=== PATIENT | male | born 1985 | race Caucasian/White ===

== ENCOUNTER → 2017-08-26 | Day surgery (SDC) | payer OTHER ==
[2017-06-07 09:28] VITALS: BMI 28.0
[2017-08-19 08:47] VITALS: Ht 160 cm; Wt 72.7 kg
[~2017-08-26] VITALS: Ht 160 cm; Wt 72.7 kg
[~2017-08-26] MED LIST: LIDOCAINE HCL 2% 2 ML VIAL (20MG/ML) ONE; PROPOFOL IV EMULSION 10 MG/ML 20 ML VIAL IV ONE
--- NOTE | 2017-08-26 11:25 | Endo History and Physical ---
History & Physical Date of Service: Aug 26, 2017. Chief Complaint: change in stool caliber Referring Physician: Dr. Per Mack History of Present Illness 31 yo CM who presents for Flexible sigmoidoscopy secondary to change in bowel habits. Past Surgical History Hx Cardiac Surgery: No Hx Internal Defibrillator: No Hx Pacemaker: No Hx Abdominal Surgery: No Hx of Implantable Prosthesis: No Hx Post-Op Nausea and Vomiting: No Hx Cancer Surgery: No Hx Thoracic Surgery: No Hx Orthopedic: Yes (LEFT ARM CLOSED REDUCTION (NO OPENING BUT HAD ANESTHESIA)) Hx Urinary Tract Surgery: No Family History None Social History Smoking Status: Current Every Day Smoker Hx Substance Use: No Hx Alcohol Use: No Allergies Coded Allergies: No Known Allergies (Verified , 08/26/17) Current Medications Reported Home Medications Medications Dose Route/Sig Max Daily Dose Days Date Category No Active Prescriptions or Reported Medications Rx Vital Signs Weight (Kilograms): 72.73 Height (Feet): 5 Height (Inches): 3 Date Time Temp Pulse Resp B/P (MAP) Pulse Ox O2 Delivery O2 Flow Rate FiO2 08/26/17 11:10 36.7 98 16 143/95 (111) 98 Room Air Physical Exam General Appearance: WD/WN, no apparent distress Respiratory/Chest: Auscultation: breath sounds normal Cardiovascular: Heart Auscultation: RRR Abdomen: Bowel Sounds: normal Inspection & Palpation: soft, non-distended, no tenderness, guarding & rebound Assessment and Plan Assessment: 31 yo CM who presents for Flexible sigmoidoscopy secondary to change in bowel habits. Plan: Proceed with Flexible sigmoidoscopy.
--- NOTE | 2017-08-26 12:07 | GI REPORT ---
Procedure Date: 08/26/2017 11:30 AM Procedure: Colonoscopy Indications: Change in stool caliber Medicines: Monitored Anesthesia Care Complications: No immediate complications. Estimated Blood Loss: Estimated blood loss: none. Procedure: Pre-Anesthesia Assessment: - Prior to the procedure, a History and Physical was performed, and patient medications and allergies were reviewed. The patient's tolerance of previous anesthesia was also reviewed. The risks and benefits of the procedure and the sedation options and risks were discussed with the patient. All questions were answered, and informed consent was obtained. Prior Anticoagulants: The patient has taken no previous anticoagulant or antiplatelet agents. ASA Grade Assessment: II - A patient with mild systemic disease. After reviewing the risks and benefits, the patient was deemed in satisfactory condition to undergo the procedure. After I obtained informed consent, the scope was passed under direct vision. Throughout the procedure, the patient's blood pressure, pulse, and oxygen saturations were monitored continuously. The scope was introduced through the anus and advanced to the cecum, identified by appendiceal orifice and ileocecal valve. The colonoscopy was performed without difficulty. The patient tolerated the procedure well. The quality of the bowel preparation was adequate to identify polyps. The ileocecal valve, appendiceal orifice, and rectum were photographed. Findings: The perianal and digital rectal examinations were normal. Non-bleeding internal hemorrhoids were found during retroflexion. The hemorrhoids were small. Impression: - Non-bleeding internal hemorrhoids. - No specimens collected. Recommendation: - Resume previous diet. - Continue present medications. - Repeat colonoscopy at age 50 for surveillance. - Return to primary care physician as previously scheduled. Rufus Vazquez, 08/26/2017 12:07:20 PM This report has been signed electronically. Note Initiated On: 08/26/2017 11:30 AM I attest to the content of the Intraoperative Record and orders documented therein, exceptions below
--- NOTE | 2017-08-26 12:08 | Discharge Instructions ---
Endoscopy Patient Instructions Date / Procedure(s) Performed Aug 26, 2017. Flex Sig Allergy Information Coded Allergies: No Known Allergies (Verified , 08/26/17) Discharge Date / Findings Aug 26, 2017. Internal hemorrhoids Medication Instructions OK to resume all medications today as prescribed Reported Home Medications Medications Dose Route/Sig Max Daily Dose Days Date Category No Active Prescriptions or Reported Medications Rx Provider Instructions Activity Restrictions - No exercising or heavy lifting for 24 hours. - Do not drink alcohol the day of the procedure. - Do not drive a car or operate machinery until the day after the procedure. - Do not make any important decisions or sign important papers in 24 hours after the procedure. Following Day: - Return to full activity which may include returning to work/school. Diet Start your diet with liquids and light foods (jello, soup, juice, toast). Then eat your usual diet if not nauseated. Treatment For Common After Affects For mild abdominal pain, bloating, or excessive gas: - Rest - Eat lightly - Lie on right side Follow-Up Information Follow-up with Dr. Per Mack as scheduled Anesthesia Information What You Should Know You have had a procedure that required some medicine to reduce anxiety and discomfort. This treatment is called moderate sedation. After receiving the treatment, you may be sleepy, but you will be able to breathe on your own. The effects of the treatment may last for several hours. Follow these instructions along with Activity/Diet recommendations noted above: * Do NOT do anything where dizziness or clumsiness would be dangerous. * Rest quietly at home today, then you can be up and about tomorrow. * Have a responsible person stay with you the rest of today. * You may have had an I.V. today. If so, you may take the dressing off later today. Recommendations Call your doctor if: * Trouble breathing * Continuous vomiting for more than 24 hours * Temperature above 101 degrees * Severe abdominal pain or bloating * Pain not relieved by pain medicine ordered * There is increased drainage or redness from any incision * A large amount of rectal bleeding greater than 2-3 tablespoons. (If you had a polyp/s removed or have hemorrhoids, a small amount of blood - from the rectum is to be expected.) * You have any unanswered questions or concerns. IN THE EVENT OF A SERIOUS EMERGENCY, GO TO THE NEAREST EMERGENCY ROOM Your discharge instructions were prepared by provider Rufus Vazquez. Patient Instructions Signature Page Gumaro Almazan Patient (or Guardian) Signature/Date: I have read and understand the instructions given to me by my caregivers. Caregiver/RN/Doctor Signature/Date: The above-named patient and/or guardian has received patient instructions on this date. + Original Patient Signature Page (only) stays with chart. Please make copy for patient.
[2017-08-26 12:42] VITALS: BP 127/85; PULSE 74; O2SAT 96
--- NOTE | 2017-08-26 13:05 | Anesthesiology Progress Note ---
Anesthesia Post Op Note Date & Time Aug 26, 2017 at 13:04 Vital Signs Pain Intensity: 0 Vital Signs Past 12 Hours Date Time Temp Pulse Resp B/P (MAP) Pulse Ox O2 Delivery O2 Flow Rate FiO2 08/26/17 12:42 74 16 127/85 (99) 96 Room Air 08/26/17 12:27 80 18 138/94 (109) 98 Room Air 08/26/17 12:12 98 18 95/53 (67) 99 Room Air 08/26/17 11:10 36.7 98 16 143/95 (111) 98 Room Air Notes Mental Status: alert / awake / arousable, participated in evaluation Pt Amnestic to Procedure: Yes Nausea / Vomiting: adequately controlled Pain: adequately controlled Airway Patency, RR, SpO2: stable & adequate BP & HR: stable & adequate Hydration State: stable & adequate Anesthetic Complications: no major complications apparent
== END | disposition home or self-care (01) ==
LOC: C.GI 10:49
PROVIDERS: ATTEND Internal Medicine
DX: R19.4 Change in bowel habit (principal); K64.8 Other hemorrhoids; F17.200 Nicotine dependence, unspecified, uncomplicated